=== PATIENT | female | born 1995 | race Caucasian/White ===

== ENCOUNTER 2019-04-22 18:10 | Emergency (ER) | payer BC, OTHER ==
[~2019-04-22] VITALS: Wt 66.5 kg
[2019-04-22 18:12] VITALS: BP 121/83; PULSE 88; RESP 18
[2019-04-22] MEDS ORDERED: IBUP-1561 PO (19:25)
[2019-04-22] MEDS ORDERED: ACET-141 PO (19:25)
--- NOTE | 2019-04-22 19:36 | ERD ---
ER Documentation Chief Complaint Chief Complaint ENTIRE LEFT SIDED TINGLING SINCE THIS MORNING; NO DEFICITS NOTED HPI 23-year-old female presents for left-sided numbness x1 day. No significant past medical history. Patient states that she had with a headache this morning and took ibuprofen with some relief however she states that she began to feel left- sided numbness from her head to her toes on the left side. The numbness noted to be intermittent. She denies pain. She denies fevers or chills. Denies runny nose. Denies chest pain or shortness of breath. Denies weakness. Denies nausea vomiting she has had similar headaches in the past. The headache is noted to be on the left side also, rated 5 out of 10, worse with looking at light. Headache is nonradiating. Headache has been chronic over 5 days. She does not have headache currently. No other modifying factors noted, no treatment tried at home. ROS All systems reviewed and are negative except as per history of present illness. Medications Home Meds Active Scripts Ibuprofen* (Motrin*) 400 Mg Tab, 400 MG PO Q6H PRN for PAIN, #30 TAB Prov:ANGELO RIVERA DO 04/22/19 Acetaminophen* (Acetaminophen*) 500 MG Extra Strength Tablet, 500 MG PO Q4H PRN for PAIN AND OR ELEVATED TEMP, #30 TAB Prov:ANGELO RIVERA DO 04/22/19 Allergies Allergies: Coded Allergies: No Known Allergy (Unverified , 04/22/19) PMhx/Soc Medical and Surgical Hx: pt denies Medical Hx, pt denies Surgical Hx Hx Alcohol Use: No Hx Substance Use: No Hx Tobacco Use: No FmHx Family History: No coronary disease Physical Exam Vitals Vital Signs Date Temp Pulse Resp B/P (MAP) Pulse Ox O2 O2 Flow FiO2 Time Delivery Rate 04/22/19 98.1 88 18 121/83 99 18:12 (96) Physical Exam Const: No acute distress Head: Atraumatic, no facial droop noted Eyes: Normal Conjunctiva ENT: Normal External Ears, bilateral tympanic membrane intact without erythema or bulging noted, nose and Mouth examination normal, no tonsillar swelling or exudate noted Neck: Full range of motion. No meningismus. no midline tenderness Resp: Clear to auscultation bilaterally, no wheezing, rales, rhonchi Cardio: Regular rate and rhythm, no murmurs Skin: No petechiae or rashes Ext: No cyanosis, or edema, 5 out of 5 history of bilateral upper and lower extremities Neur: Awake and alert, bilateral upper lower extremity sensation intact Psych: Normal Mood and Affect Procedures/MDM Medical Decision Making: Differential diagnosis includes but not limited to migraine headache, CVA,TIA, lyme disease, intracranial hemorrhage, meningitis Patient appeared well on physical exam. Patient denies any fevers or neck pain. There is low suspicion for meningitis. Given the progressive nature of the headache there is low suspicion for intracranial hemorrhage Patient is neurovascular intact, no facial drooping, no neurologic deficits to suggest CVA or TIA Patient had it was resolved while she was in the ER. She was mostly concerned about the numbness on the left side. Advised that the numbness could be due to the patient's migraine headache. She was advised to follow with primary care physician for possible referral to neurology if her symptoms continue. Patient prescription for Tylenol and Motrin Patient advised to follow up with PCP in 1-2 days. Patient advised to return to ED for new or worsening symptoms. Patient stable on discharge from the ED. Disclaimer: Inadvertent spelling and grammatical errors are likely due to EHR/dictation software use and do not reflect on the overall quality of patient care. Also, please note that the electronic time recorded on this note does not necessarily reflect the actual time of the patient encounter. Departure Diagnosis: Primary Impression: Numbness and tingling Condition: Fair Patient Instructions: Understanding Headache Pain, Numbness Referrals: [facility] YOU HAVE RECEIVED A MEDICAL SCREENING EXAM AND THE RESULTS INDICATE THAT YOU DO NOT HAVE A CONDITION THAT REQUIRES URGENT TREATMENT IN THE EMERGENCY DEPARTMENT. FURTHER EVALUATION AND TREATMENT OF YOUR CONDITION CAN WAIT UNTIL YOU ARE SEEN IN YOUR DOCTORS OFFICE WITHIN THE NEXT 1-2 DAYS. IT IS YOUR RESPONSIBILITY TO MAKE AN APPOINTMENT FOR FOLOW-UP CARE. IF YOU HAVE A PRIMARY DOCTOR --you should call your primary doctor and schedule an appointment IF YOU DO NOT HAVE A PRIMARY DOCTOR YOU CAN CALL OUR PHYSICIAN REFERRAL HOTLINE AT IF YOU CAN NOT AFFORD TO SEE A PHYSICIAN YOU CAN CHOSE FROM THE FOLLOWING [facility] [address] [facility] [address] [facility] [address] [facility]. [facility] [address] [facility]. [facility] [address] [facility]. [facility] [address] Additional Instructions: Call your primary care doctor TOMORROW for an appointment during the next 1-2 days.See the doctor sooner or return here if your condition worsens before your appointment time. ANGELO RIVERA DO April 22, 2019 19:36
== END 2019-04-22 19:42 | disposition home or self-care (01) ==
LOC: FTE 18:10
DX: R20.2 Paresthesia of skin (principal); R20.0 Anesthesia of skin
CPT/HCPCS: 99282